=== PATIENT | male | born 1970 | race Caucasian/White ===

== ENCOUNTER 2018-03-09 17:47 | Emergency (ER) | payer OTHER ==
[~2018-03-09] VITALS: Ht 177.8 cm; Wt 99.8 kg
[~2018-03-09 17:47] MED LIST: AZITHROMYCIN 2250 MG PO; DOXYCYCLINE 10100 M1 PO; MEDROLDOSEPACK PO; NOHOMEMEDICATIONS; PROAIR HFA8.5 GM PO
[2018-03-09] MEDS ORDERED: NAPROSYN500 MG PO (18:41)
[2018-03-09 19:21] VITALS: BP 142/82
== END 2018-03-09 19:22 | disposition home or self-care (01) ==
LOC: M.ERS 17:47
DX: M77.12 Lateral epicondylitis, left elbow (principal); F17.210 Nicotine dependence, cigarettes, uncomplicated

== ENCOUNTER 2021-05-23 11:27 | Emergency (ER) | payer OTHER ==
[~2021-05-23] VITALS: Ht 177.8 cm; Wt 92.1 kg
[~2021-05-23 11:27] MED LIST changes: +NAPROSYN500 MG PO
[2021-05-23 12:42] LABS: ABSOLUTE BASOPHILS 0.1 thou/uL (0.0-0.2); ABSOLUTE EOSINOPHILS 0.1 thou/uL (0.0-0.7); ABSOLUTE MONOCYTES 0.6 thou/uL (0.0-1.2); ABSOLUTE NEUTROPHILS 5.1 thou/uL (1.6-8.1); BASOPHILS 0.7 %; EOSINOPHILS 1.2 %; HEMATOCRIT 46.6 % (42.0-52.0); HEMOGLOBIN 16.3 gm/dL (14.0-18.0); LYMPHOCYTES 26.2 %; MCH 33.7 pg (26.0-34.0); MCV 96.3 fL (80.0-100.0); MONOCYTES 7.1 %; MPV 6.8 fl. (7.2-11.1); NUCLEATED RBCS 0 /100WBC; PLATELET COUNT* 185 thou/uL (150-400); POLYS 64.8 %; RBC 4.84 mil/uL (4.50-6.00); WBC 7.8 thou/uL (4.0-11.0)
[2021-05-23 12:50] LABS: CALCIUM 9.2 mg/dL (8.5-10.1); CREATININE 1.1 mg/dL (0.6-1.3); POTASSIUM 4.6 mmol/L (3.5-5.1)
[2021-05-23 12:54] LABS: ALBUMIN 3.9 g/dL (3.4-5.0); TOTAL BILIRUBIN 0.4 mg/dL (<0.1-1.0); TOTAL PROTEIN 7.3 g/dL (6.4-8.2)
[2021-05-23] MEDS ORDERED: MEDROLDOSEPACK PO (13:50)
[2021-05-23] MEDS ORDERED: ZPAK PO (13:50)
[2021-05-23] MEDS ORDERED: VENTOLIN HFA 1818 GM INH (13:50)
[2021-05-23 14:00] VITALS: BP 136/73
--- NOTE | 2021-05-23 15:49 | EKG ---
[place] [address] ELECTROCARDIOGRAM REPORT Name: BORIS ESPARZA Room: [facility]#: [id number] Admission: 05/23/21 Attend Phys: Discharge: 05/23/21 Date of : 70 Date of Service: 05/23/21 1245 Report #: [id number] THIS REPORT FOR: //name// [facility] ED Test Date: 2021-05-23 Test Time: 12:45:17 Pat Name: BORIS ESPARZA Department: Room: Gender: T[employer] Erad[facility] 1970 Requested By: Regina Menjivar Order Number: [id number] MD: Boris Hughes Measurements Intervals [place] Rate: 77 P: 76 [place]: 134 QRS: 38 QRSD: 92 T: 51 QT: 363 QTc: 411 Interpretive Statements Sinus rhythm ST elev, probable normal early repol pattern Compared to ECG 01/15/2016 19:20:05 ST (T wave) deviation now present Electronically Signed On 05-23-2021 15:49:34 CDT by Boris Hughes [email or web address] <ELECTRONICALLY SIGNED> By: Boris Hughes MD, [facility] 05/23/21 1549 1245 1245 Boris Hughes MD, [facility] /EPI
== END 2021-05-23 14:00 | disposition home or self-care (01) ==
LOC: M.ERS 11:27
PROVIDERS: Nurse Practitioner Family
DX: J20.9 Acute bronchitis, unspecified (principal); Z20.822 Contact with and (suspected) exposure to COVID-19; Z90.89 Acquired absence of other organs; Z98.890 Other specified postprocedural states